=== PATIENT | female | born 1945 | race Caucasian/White ===

== ENCOUNTER 2017-02-01 14:07 | Emergency (ER) | payer OTHER, MEDICARE, BC ==
[2017-02-01] MEDS ORDERED: DIPH/PERTUSS(ACELL)/TETANUS VAC/PF 0.5 ML SYR (>=10YO) IM ONE (14:35)
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
[2017-02-01] MEDS ORDERED: HYDROCODONE/ACETAMINOPHEN 5-325 MG TABLET PO ONE (15:46)
[2017-02-01 16:22] VITALS: BP 136/64
== END 2017-02-01 17:12 | disposition home or self-care (01) ==
LOC: ER 14:07
DX: S20.219A Contusion of unspecified front wall of thorax, initial encounter (principal); S90.111A Contusion of right great toe without damage to nail, initial encounter; S40.811A Abrasion of right upper arm, initial encounter; S16.1XXA Strain of muscle, fascia and tendon at neck level, initial encounter; V89.2XXA Person injured in unspecified motor-vehicle accident, traffic, initial encounter; Z23 Encounter for immunization
CPT/HCPCS: 99284; 90471; 71010; 70450; 72125; 90715; L0120